=== PATIENT | female | born 1955 | race Caucasian/White ===

== ENCOUNTER → 2016-07-10 | Outpatient (CLI) | payer MEDICARE, BC ==
--- NOTE | 2016-07-10 17:55 | US ---
EXAMINATION TYPE: US pelvic complete DATE OF EXAM: 07/10/2016 5:09 PM COMPARISON: NONE CLINICAL HISTORY: R19.07 INTRA ABDOMINAL AND PELVIC SWELLING. Patient stated had right sided pelvic p ain after gynecological exam and physician noted left sided fullness with wire worker exam; TECHNIQUE: Transabdominal (TA) Date of LMP: 2006 EXAM MEASUREMENTS: Uterus: 5.9 x 3.9 x 2.4 cm Endometrial Stripe: 0.3 cm Right Ovary: 1.8 x 1.3 x 1.3 cm Left Ovary: 1.7 x 1.3 x 1.3 cm 1. Uterus: Anteverted 2. Endometrium: wnl for post menopause 3. Right Ovary: wnl 4. Left Ovary: area limitedly seen due to bowel peristalsing noted in left adnexa 5. Bilateral Adnexa: wnl 6. Posterior cul-de-sac: wnl IMPRESSION: Normal transabdominal pelvic sonogram. Normal uterus and endometrium.
== END | disposition home or self-care (01) ==
LOC: RADUSWWP 16:13
PROVIDERS: ATTEND Family Medicine
DX: R19.07 Generalized intra-abdominal and pelvic swelling, mass and lump (principal)
CPT/HCPCS: 76856